=== PATIENT | male | born 1955 | race Caucasian/White ===

== ENCOUNTER → 2018-06-27 | Outpatient (CLI) | payer MEDICARE ==
--- NOTE | 2018-06-27 15:46 | US ---
EXAMINATION TYPE: US gallbladder DATE OF EXAM: 06/27/2018 COMPARISON: NONE CLINICAL HISTORY: R10.11 RUQ Abdominal pain. EXAM MEASUREMENTS: Liver Length: 16.8 cm Gallbladder Wall: 0.1 cm CBD: 0.4 cm Right Kidney: 10.5 x 5.6 x 4.8 cm Pancreas: Partially Obscured by bowel gas. echogenic texture Liver: Partially Obscured by overlying bowel gas , enlarged Gallbladder: wnl Evidence for sonographic Taylor's sign: No CBD: wnl Right Kidney: 2 renal cysts: Superior = 2.7 x 2.0 x 2.1 cm Inferior, Lateral = 2.9 x 2.4 x 2.2 cm Sub optimal exam due to large amounts of bowel gas. IMPRESSION: 1. Exam limited due to excessive bowel gas. 2. Hepatomegaly with moderate fatty infiltration liver.
== END | disposition home or self-care (01) ==
LOC: RADUSWWP 06:46
PROVIDERS: ATTEND Family Medicine
DX: K76.0 Fatty (change of) liver, not elsewhere classified (principal); R16.0 Hepatomegaly, not elsewhere classified
CPT/HCPCS: 76705

== ENCOUNTER → 2018-07-04 | Outpatient (CLI) | payer MEDICARE ==
--- NOTE | 2018-07-04 12:34 | NM ---
EXAMINATION TYPE: NM hepatobiliary w EF DATE OF EXAM: 07/04/2018 COMPARISON: Ultrasound gallbladder 06/27/2018 HISTORY: Right upper quadrant pain TECHNIQUE: After the intravenous administration of 5.03 mCi Tc 99m Mebrofenin hepatobiliary scintigra phy is performed. Immediate images post injection. FINDINGS: There is satisfactory initial accumulation of tracer by the liver. The gallbladder is visualized wit hin 10 minutes. The small bowel activity is noted on delayed images. At one hour 8 ounces of oral e nsure plus is given to mimic CCK and gallbladder ejection fraction is calculated at 65 %, in the norm al range. Therefore there is no scintigraphic evidence of cystic or common bile duct obstruction to suggest acute cholecystitis or gallbladder dyskinesia. IMPRESSION: Gallbladder ejection fraction is normal. There is some delayed visualization of the small bowel.
== END | disposition home or self-care (01) ==
LOC: RADNMMAIN 06:52
PROVIDERS: ATTEND Family Medicine
DX: R10.11 Right upper quadrant pain (principal)
CPT/HCPCS: 78226; A9537

== ENCOUNTER → 2018-07-26 | Day surgery (SDC) | payer MEDICARE ==
[2018-07-24 16:15] VITALS: BMI 29.8
[~2018-07-26] MED LIST: DEXAMETHASONE SOD PHOSPHATE 10 MG/ML 1 ML VIAL IV ONE; LACTATED RINGERS 1,000 ML IV SCH; LIDOCAINE 1% 20 ML VIAL (10MG/ML) FOR IV START INTRADERMA PRN; LIDOCAINE 1% INJ 10MG/ML (20 ML MDV) ONE; ONDANSETRON 4 MG/2 ML VIAL IVP ONE; ONDANSETRON 4 MG/2 ML VIAL IVP PRN; PROPOFOL 10 MG/ML 20 ML VIAL IV ONE; SCOPOLAMINE 1.5MG/72HR PATCH TRANSDERM ONE
[2018-07-26 08:19] VITALS: TEMP 97.6
--- NOTE | 2018-07-26 10:02 | P.PCN ---
Date of Procedure: 07/26/18 Procedure(s) Performed: Procedure: Colonoscopy and polypectomy. Preoperative diagnosis: Screening for neoplasia. Postoperative diagnosis: 1. Diverticulosis with no evidence of acute diverticulitis or strictures. 2. Multiple polyps snared. Preparation: HalfLytely prep. Sedation: Was provided by anesthesia. Brief clinical history: The patient is a 62-year-old male who is scheduled for this evaluation for screening for neoplasia age being his risk factor. He had a prior exam around 15 years ago. The patient has no abdominal complaints, bleeding or anemia. He has been having some right-sided flank kind pains and describes his stools to be thin. Procedure: With the patient on his left lateral decubitus position and after informed consent and adequate sedation, the perianal area was inspected and it did not show any fissures or fistulas. There were no masses felt on digital rectal examination. The Olympus CFQ 160L video colonoscope was then inserted in the rectum in the usual fashion and advanced to the cecum. There were multiple diverticular orifices seen scattered along the length of the bowel wall , more on the left side with no evidence of acute diverticulitis or strictures. There were multiple polyps snared: 1 in the right colon and four in the sigmoid around 50 cm from the anal verge. 1 of the polyps in the sigmoid was around 2 &1/2 to 3-cm in size. The right colon polyp and the larger sigmoid polyp had to be suctioned to the tip of the endoscope or captured with the snare and retrieved by withdrawing the colonoscope and restarting the exam. I retroflexed the endoscope in the rectum before the endoscope was withdrawn. The patient tolerated the procedure well. Plan: The patient was reassured. Discussed dietary measures. He will follow up with you as planned and I will recommend the interval for the repeat colonoscopy based on the pathology results. I anticipate this would be in 2-3 years.
[2018-07-26 10:09] VITALS: BP 1188/77; PULSE 70; RESP 18
== END | disposition home or self-care (01) ==
LOC: ORWHC2ENDO 07:34
DX: Z12.11 Encounter for screening for malignant neoplasm of colon (principal); K57.30 Diverticulosis of large intestine without perforation or abscess without bleeding; D12.5 Benign neoplasm of sigmoid colon; D12.2 Benign neoplasm of ascending colon; I25.10 Atherosclerotic heart disease of native coronary artery without angina pectoris; I11.0 Hypertensive heart disease with heart failure; I50.9 Heart failure, unspecified; Z88.0 Allergy status to penicillin; Z88.1 Allergy status to other antibiotic agents; I25.2 Old myocardial infarction; E78.5 Hyperlipidemia, unspecified; Z87.891 Personal history of nicotine dependence; Z95.1 Presence of aortocoronary bypass graft; Z79.82 Long term (current) use of aspirin; Z79.899 Other long term (current) drug therapy
CPT/HCPCS: 88305; 45385; J2001; J2704

== ENCOUNTER 2023-05-22 08:44 | Day surgery (SDC) | payer MEDICARE ==
[2023-05-15 12:23] VITALS: BMI 25.7
[~2023-05-22 08:44] MED LIST changes: +ALPRAZolam 0.25 MG TAB PO PRN; +ALPRAZolam 0.5 MG TAB PO PRN; +ASPIRIN 325 MG TAB PO STA; -DEXAMETHASONE SOD PHOSPHATE 10 MG/ML 1 ML VIAL IV ONE; -LACTATED RINGERS 1,000 ML IV SCH; -LIDOCAINE 1% 20 ML VIAL (10MG/ML) FOR IV START INTRADERMA PRN; -LIDOCAINE 1% INJ 10MG/ML (20 ML MDV) ONE; +NITROGLYCERIN SL TABS 0.4 MG TAB SUBLINGUAL PRN; -ONDANSETRON 4 MG/2 ML VIAL IVP ONE; -ONDANSETRON 4 MG/2 ML VIAL IVP PRN; -PROPOFOL 10 MG/ML 20 ML VIAL IV ONE; -SCOPOLAMINE 1.5MG/72HR PATCH TRANSDERM ONE; +SODIUM CHLORIDE 0.9% 1,000 ML in EMPTY BAG 1 BAG IV SCH
[2023-05-22] MEDS ORDERED: SODIUM CHLORIDE 0.9% 1,000 ML IV ONE (08:48)
[2023-05-22 09:27] VITALS: RESP 16; TEMP 97.1
[2023-05-22] MEDS ORDERED: LIDOCAINE 1% INJ 10MG/ML (20 ML MDV) ONE (10:54)
[2023-05-22] MEDS ORDERED: HEPARIN SODIUM 1,000 UN/ML (10ML VL) ONE (10:54)
[2023-05-22] MEDS ORDERED: LIDOCAINE 1% INJ 10MG/ML (20 ML MDV) SQ ONE (11:04)
[2023-05-22] MEDS ORDERED: MIDAZOLAM 2 MG/2 ML VIAL IVP ONE (11:06)
[2023-05-22] MEDS ORDERED: IOPAMIDOL-370 100ML BTL INJ ONE ×2 (11:27→11:54)
[2023-05-22] MEDS ORDERED: HEPARIN SODIUM 1,000 UN/ML (10ML VL) IVP ONE (11:40)
[2023-05-22] MEDS ORDERED: fentaNYL (PF) 50 MCG/ML 2 ML AMP ONE (11:51)
[2023-05-22] MEDS ORDERED: fentaNYL (PF) 50 MCG/ML 2 ML AMP IVP ONE (11:54)
[2023-05-22] MEDS ORDERED: HYDROmorphone 1 MG/ML 1 ML SYRINGE ONE (11:58)
[2023-05-22] MEDS ORDERED: SODIUM CHLORIDE 0.9% 1,000 ML IV SCH (12:00)
[2023-05-22] MEDS ORDERED: HYDROmorphone 1 MG/ML 1 ML SYRINGE IVP ONE (12:00)
[2023-05-22] MEDS ORDERED: RX INFO: IV CONTRAST WAS GIVEN 1 EACH MISC MISCELLANE PRN (12:00)
--- NOTE | 2023-05-22 12:11 | P.PCN ---
Date of Procedure: 05/22/23 Operative Findings: CARDIAC CATHETERIZATION PERFORMING PHYSICIAN: Santiago eMna MD, RPVI PROCEDURE PERFORMED: 1. Selective right and left coronary angiogram 2. Left heart catheterization 3. The mitral LAD angiogram, SVG to diagonal angiogram, SVG to OM angiogram 4. Selective right common femoral artery angiogram 5. Ultrasound-guided access of the right common femoral artery 6. Attempted PTCA of the left circumflex INDICATION: Chest discomfort concerning for angina in the 67-year-old gentleman who is known to have CAD status post CABG and redo CABG. COMPLICATION: None APPROACH: Right common femoral artery LEVEL OF SEDATION: Moderate with sedation in length of 49 minutes PROCEDURE DESCRIPTION: After obtaining an informed consent, the patient was brought to cardiac microbiology lab analyst. Local anesthesia was performed using lidocaine subcutaneously. The right common femoral artery was cannulated using Seldinger technique, the guidewire passed easily, following that we advanced a 6 Honduran sheath dilator assembly, the wire and dilator were removed and sheath was flushed. Selective right and left coronary angiogram using a 6-Honduran JR4 and JL catheters. Following that we did left heart catheterization using 6-Honduran pigtail catheter. The procedure was completed there was no complication. SELECTIVE CORONARY ANGIOGRAM: The right coronary artery: The RCA is chronically occluded. Left main: Has mild disease only. Bifurcates into an LCx and LAD The left circumflex: Large caliber vessel nondominant vessel. The proximal LCx appeared to be subtotally occluded just by the bifurcation of a large OM branch which appeared to be grafted. The circumflex after that gives rises into small to medium caliber obtuse marginal branch. The left anterior descending artery: The proximal LAD appears to have intermediate to severe lesion. The mid LAD appears to have a critical lesion. Coronary bypasses angiogram: The WOLF to LAD is patent The SVG to diagonal is patent The SVG to OM is patent The SVG to RCA is occluded HEMODYNAMICS: The LVEDP was 4 mmHg was no significant gradient across aortic valve ATTEMPTED PCI OF THE LCX: Anticoagulation was initiated using heparin with continuous ACT monitoring. Subsequently I did engage the left main using a CLS 3.5 guiding catheter. Attempting crossing the lesion in the left circumflex was done using a whisper wire and that was unsuccessful. Because the LCx distal to that was not a large caliber vessel and not feeding a large territory I decided to stop and 3.medically. CONCLUSION: 1. Severe triple-vessel CAD 2. Patent WOLF to LAD 3. Intermediate disease involving the ostial and proximal SVG to diagonal with dampening wave form and contrast staining 4. Patent SVG to OM 5. Occluded SVG to RCA POSTPROCEDURE MANAGEMENT: Consider maximize medical treatment at this point Consider coronary CTA to assess for any bypass to the right coronary artery.
[2023-05-22] MEDS ORDERED: ACETAMINOPHEN TAB 500 MG TAB PO ONE (14:50)
[2023-05-22 16:17] VITALS: BP 110/57; PULSE 50
== END 2023-05-22 16:55 | disposition home or self-care (01) ==
LOC: CATHCVL 08:44
PROVIDERS: ATTEND Internal Medicine Interventional Cardiology
DX: I25.10 Atherosclerotic heart disease of native coronary artery without angina pectoris (principal); I10 Essential (primary) hypertension; E78.5 Hyperlipidemia, unspecified; Z82.49 Family history of ischemic heart disease and other diseases of the circulatory system; F17.210 Nicotine dependence, cigarettes, uncomplicated; Z79.82 Long term (current) use of aspirin; Z79.899 Other long term (current) drug therapy
CPT/HCPCS: 93459; 76937; C1760; C1769 ×4; C1887 ×2; C1894; J2250; J2001; J3010; J1644; J1170; Q9967

== ENCOUNTER 2024-01-23 08:24 | Day surgery (SDC) | payer MEDICARE ==
[2024-01-18 13:40] VITALS: BMI 25.7
[~2024-01-23 08:24] MED LIST changes: -ALPRAZolam 0.5 MG TAB PO PRN; -ASPIRIN 325 MG TAB PO STA; -SODIUM CHLORIDE 0.9% 1,000 ML in EMPTY BAG 1 BAG IV SCH
[2024-01-23] MEDS: SODIUM CHLORIDE 0.9% 1,000 ML IV ONE (11:12)
[2024-01-23] MEDS ORDERED: VERAPAMIL 2.5 MG/ML 2 ML AMP ONE (11:54)
[2024-01-23] MEDS ORDERED: LIDOCAINE 1% INJ 10MG/ML (20 ML MDV) ONE (11:54)
[2024-01-23] MEDS ORDERED: fentaNYL (PF) 50 MCG/ML 2 ML AMP ONE (12:31)
[2024-01-23] MEDS: MIDAZOLAM 2 MG/2 ML VIAL IVP ONE (12:52)
[2024-01-23] MEDS: fentaNYL (PF) 50 MCG/ML 2 ML AMP IVP ONE (12:53)
[2024-01-23] MEDS: LIDOCAINE 1% INJ 10MG/ML (20 ML MDV) SQ ONE (12:55)
[2024-01-23] MEDS: PHENYLEPHRINE-0.9% NACL SYG 1,000 MCG/10 ML SYRINGE IVP ONE (13:05)
[2024-01-23] MEDS: IOPAMIDOL-370 100ML BTL INJ ONE (13:11)
[2024-01-23] MEDS ORDERED: RX INFO: IV CONTRAST WAS GIVEN 1 EACH MISC MISCELLANE PRN (13:20)
--- NOTE | 2024-01-23 13:25 | P.PCN ---
Date of Procedure: 01/23/24 Operative Findings: CARDIAC CATHETERIZATION PERFORMING PHYSICIAN: Santiago Mena MD, RPVI PROCEDURE PERFORMED: 1. Selective right and left coronary angiogram and WOLF to LAD angiogram and SVG to diagonal angiogram and SVG to OM angiogram 2. Left heart catheterization 3. Ultrasound-guided access of the right common femoral artery and selective right common femoral artery angiogram INDICATION: Newly diagnosis cardiomyopathy COMPLICATION: None APPROACH: Right common femoral artery LEVEL OF SEDATION: Moderate with sedation in length of 16 minutes PROCEDURE DESCRIPTION: After obtaining an informed consent, the patient was brought to cardiac slab puller. Local anesthesia was performed using lidocaine subcutaneously. The right common femoral artery was cannulated using Seldinger technique, under ultrasound guidance, the guidewire passed easily, following that we advanced a 6 Greek sheath dilator assembly, the wire and dilator were removed and sheath was flushed. Selective right and left coronary angiogram using a 6-Greek JR4 and JL catheters. The WOLF to LAD angiogram and SVG to diagonal angiogram and SVG to OM angiogram performed using JR4 catheter Following that we did left heart catheterization using 6-Greek pigtail catheter. The procedure was completed there was no complication. SELECTIVE CORONARY ANGIOGRAM: The right coronary artery: Is chronically occluded in the proximal portion Left main: Has intermediate disease The left circumflex: Has critical disease in the proximal portion The left anterior descending artery: Has critical disease in the proximal portion Coronary bypasses angiogram The WOLF to LAD is patent The SVG to diagonal is patent The SVG to OM is patent The SVG to RCA is occluded which is known from before. We did not do an angiogram on the SVG to RCA today HEMODYNAMICS: LVEDP was low almost close to 0 CONCLUSION: 1. Severe triple-vessel coronary artery disease 2. Patent WOLF to LAD and patent SVG to diagonal and patent SVG to OM and occluded SVG to RCA 3. Low left-sided filling pressure POSTPROCEDURE MANAGEMENT: Continue maximize medical treatment for cardiomyopathy
[2024-01-23] MEDS: ASPIRIN 325 MG TAB PO STA (13:38)
[2024-01-23] MEDS: ACETAMINOPHEN TAB 500 MG TAB PO ONE (13:48)
[2024-01-23] MEDS: SODIUM CHLORIDE 0.9% 1,000 ML IV SCH (14:26)
[2024-01-23] MEDS: SODIUM CHLORIDE 0.9% 1,000 ML in EMPTY BAG 1 BAG IV SCH (14:26)
[2024-01-23] MEDS: MORPHINE SULFATE 4 MG/ML SYRINGE IVP PRN (15:14)
[2024-01-23] MEDS: ALPRAZolam 0.5 MG TAB PO PRN (16:25)
[2024-01-23 19:49] VITALS: BP 100/51; PULSE 66; RESP 16; TEMP 97.5
== END 2024-01-23 21:10 | disposition home or self-care (01) ==
LOC: CATHCVL 08:24 → 6NMEDSUR 13:13 → CATHCVL 21:10
PROVIDERS: ATTEND Internal Medicine Interventional Cardiology
DX: I25.10 Atherosclerotic heart disease of native coronary artery without angina pectoris (principal); I42.9 Cardiomyopathy, unspecified; I10 Essential (primary) hypertension; E78.5 Hyperlipidemia, unspecified; F17.210 Nicotine dependence, cigarettes, uncomplicated; Z82.49 Family history of ischemic heart disease and other diseases of the circulatory system; I65.23 Occlusion and stenosis of bilateral carotid arteries; I25.5 Ischemic cardiomyopathy; Z79.899 Other long term (current) drug therapy
CPT/HCPCS: 93459; 76937; C1769 ×2; C1894; J2250; J2270; J2001; J3010; Q9967; J2371